=== PATIENT | female | born 1955 | race Hispanic/Latino ===

== ENCOUNTER 2021-02-23 08:07 | Inpatient (IN) | payer SELFPAY ==
[~2021-02-23] VITALS: Ht 157.5 cm; Wt 53.9 kg
[2021-02-23 08:12] VITALS: BP 159/80
[2021-02-23 09:18] LABS: BASOPHILS % (AUTO) 0.6 % (0.0-5.0); EOSINOPHILS % (AUTO) 1.6 % (0.0-8.0); HEMATOCRIT 33.3 % (36-48); LYMPHOCYTES % (AUTO) 23.3 % (21.0-51.0); MEAN CORPUSCULAR HEMOGLOBIN 29.1 pg (27.0-33.0); MEAN CORPUSCULAR HGB CONC 32.4 g/dL (32.0-36.0); MEAN CORPUSCULAR VOLUME 89.8 fL (79-99); MONOCYTES % (AUTO) 7.4 % (3.0-13.0); NEUTROPHILS % (AUTO) 66.7 % (40.0-77.0); PLATELET COUNT (AUTO) 218 K/uL (130-400); RED BLOOD CELL COUNT(AUTO) 3.71 MIL/uL (4.00-5.50); RED CELL DISTRIBUTION WIDTH 12.9 % (11.0-15.5)
[2021-02-23 09:33] LABS: INR 0.99 (0.85-1.15); PROTHROMBIN TIME 10.8 SEC (9.6-11.6)
[2021-02-23 09:54] LABS: ALBUMIN 3.3 g/dL (3.5-5.0); BILIRUBIN,TOTAL 0.6 mg/dL (0.2-1.0); CREATININE 0.8 mg/dL (0.5-1.5); TOTAL PROTEIN, SERUM 8.2 g/dL (6.0-8.3)
[2021-02-23 10:00] VITALS: BP 132/72
[2021-02-23] MEDS ORDERED: ONDANSETRON 4MG INJ IVP SCH (10:11)
[2021-02-23] MEDS: MORPHINE 4 MG SYG IV SCH ×3 (10:32→18:38)
[2021-02-23 11:20] LABS: POTASSIUM 3.9 mmol/L (3.5-5.1)
[2021-02-23 12:00] VITALS: BP 128/70
[2021-02-23] MEDS ORDERED: CEFAZOLIN SODIUM 1 GM VIAL IVP PRN (12:00)
[2021-02-23] MEDS ORDERED: ACETAMINOPHEN 325 MG TAB PO PRN (12:30)
[2021-02-23] MEDS ORDERED: ONDANSETRON 4MG INJ IVP PRN (12:30)
[2021-02-23] MEDS: 0.9%NACL 1000ML 1,000 ML IV SCH ×2 (12:30→18:30)
[2021-02-23] MEDS ORDERED: ACETAMINOPHEN 650 MG SUPPOSITORY RC PRN (12:30)
[2021-02-23] MEDS ORDERED: CLONIDINE HCL 0.1 MG TABLET PO PRN (12:30)
[2021-02-23 14:08] VITALS: BP 132/84
[2021-02-23 14:16] LABS: RETICULOCYTE % (AUTO) 0.77 % (0.42-2.23)
[2021-02-23 14:35] VITALS: BP 146/64
[2021-02-23 14:42] LABS: CREATINE KINASE, TOTAL 37 U/L (21-232); MYOGLOBIN 31 ng/mL (10-92); TROPONIN I < 0.04 ng/mL (0.00-0.06)
[2021-02-23 14:51] LABS: % IRON SATURATION 24.7 % (22-44)
[2021-02-23] MEDS ORDERED: LOSA50TA64 PO (15:06)
[2021-02-23] MEDS ORDERED: GABA600T10 PO (15:06)
[2021-02-23] MEDS ORDERED: METO100T14 PO (15:06)
[2021-02-23] MEDS ORDERED: IBUP-2071 PO (15:07)
[2021-02-23] MEDS: MORPHINE 4 MG SYG IVP PRN ×2 (15:23→18:30)
[2021-02-23 18:31] LABS: CREATINE KINASE, TOTAL 35 U/L (21-232); MYOGLOBIN 29 ng/mL (10-92); TROPONIN I < 0.04 ng/mL (0.00-0.06)
[2021-02-23] MEDS: IPRATROPIUM/ALBUTEROL SULFATE 3 ML SOLUTION IH SCH ×2 (18:31→23:26)
[2021-02-23] MEDS: ENOXAPARIN SODIUM 40 MG/0.4 ML SYRINGE SQ SCH (19:02)
[2021-02-23 20:04] VITALS: BP 146/65
[2021-02-23 23:22] LABS: APPEARANCE,URINE Clear (CLEAR); BILIRUBIN,URINE Negative (NEGATIVE); COLOR,URINE Yellow (YELLOW); GLUCOSE, URINE (UA) Negative (NEGATIVE); KETONES,URINE Negative (NEGATIVE); LEUKOCYTE ESTERASE ,URINE Small (NEGATIVE); NITRATE,URINE Positive (NEGATIVE); OCCULT BLOOD,URINE Trace (NEGATIVE); PH,URINE 5.5 (5.0-8.0); PROTEIN,URINE Negative (NEGATIVE)
[2021-02-23 23:28] LABS: AMPHET/METH SCREEN,URINE NEGATIVE (NEGATIVE); BARBITURATE SCREEN, URINE NEGATIVE (NEGATIVE); BENZODIAZEPINES SCREEN,URINE NEGATIVE (NEGATIVE); CANNABINOID SCREEN,URINE NEGATIVE (NEGATIVE); COCAINE SCREEN,URINE NEGATIVE (NEGATIVE); OPIATE SCREEN,URINE POSITIVE (NEGATIVE); PHENCYCLIDINE SCREEN,URINE NEGATIVE (NEGATIVE)
[2021-02-23 23:37] LABS: BACTERIA,URINE Many /HPF (None Seen); RBC,URINE None Seen /HPF (0-1); SQUAMOUS EPITHELIAL CELL,UR 0-2 /HPF (0-2)
[2021-02-24] VITALS (24 sets, daily range): BP systolic 137–161; BP diastolic 51–82
[2021-02-24] MEDS: MORPHINE 2 MG SYG IVP PRN ×2 (00:42→11:22)
[2021-02-24 00:50] LABS: HEMATOCRIT 30.5 % (36-48); MEAN CORPUSCULAR HEMOGLOBIN 29.7 pg (27.0-33.0); MEAN CORPUSCULAR HGB CONC 33.1 g/dL (32.0-36.0); MEAN CORPUSCULAR VOLUME 89.7 fL (79-99); RED BLOOD CELL COUNT(AUTO) 3.4 MIL/uL (4.00-5.50); WHITE BLOOD COUNT (AUTO) 3.9 K/uL (4.8-10.8)
[2021-02-24 01:21] LABS: CREATINE KINASE, TOTAL 29 U/L (21-232); MYOGLOBIN 25 ng/mL (10-92); TROPONIN I < 0.04 ng/mL (0.00-0.06)
[2021-02-24 01:23] LABS: CARBON DIOXIDE 22 mmol/L (21-32); CHLORIDE 107 mmol/L (101-111); CREATININE 0.8 mg/dL (0.5-1.5); GLOMERULAR FILTR. RATE CALC 77 mL/min (>60); GLUCOSE,RANDOM 97 mg/dL (70-105); PHOSPHORUS 3.3 mg/dL (2.5-4.9); SODIUM SERUM 139 mmol/L (136-145); UREA NITROGEN, BLOOD 10 mg/dL (7-18)
[2021-02-24 01:30] LABS: HEMOGLOBIN A1C 5.3 % (4.0-6.0)
[2021-02-24 01:43] LABS: THYROID STIMULATING HORMONE < 0.01 uIU/mL (0.36-3.74)
[2021-02-24] MEDS: MAGNESIUM 2GM PREMIX 50ML 50 ML IV PRN (03:27)
[2021-02-24] MEDS: IPRATROPIUM/ALBUTEROL SULFATE 3 ML SOLUTION IH SCH ×4 (06:24→23:03)
[2021-02-24] MEDS: METHIMAZOLE 10 MG TAB PO SCH ×2 (09:00→17:16)
[2021-02-24] MEDS: POLYETHYLENE GLYCOL 3350 17 GM POWD.PACK PO SCH (09:00)
[2021-02-24] MEDS: PANTOPRAZOLE 40 MG TAB DR PO SCH (09:00)
[2021-02-24] MEDS: CYANOCOBALAMIN (VITAMIN B-12) 1,000 MCG TABLET PO SCH (09:00)
[2021-02-24] MEDS: LOSARTAN 50 MG TABLET PO SCH (09:00)
[2021-02-24] MEDS: METOPROLOL TARTRATE 50 MG TAB PO SCH (09:01)
[2021-02-24] MEDS: CEFTRIAXONE 1G VIAL IVP SCH (10:53)
[2021-02-24] MEDS ORDERED: LACTATED RINGERS 1000ML 1,000 ML IV ONE (13:21)
[2021-02-24] MEDS ORDERED: LIDOCAINE PF 100MG/5ML (2%) SYRINGE 5ML ONE (13:37)
[2021-02-24] MEDS ORDERED: ONDANSETRON 4MG INJ ONE (13:37)
[2021-02-24] MEDS ORDERED: DEXAMETHASONE SOD PHOSPHATE 10MG/ML 1ML VIAL ONE (13:37)
[2021-02-24] MEDS ORDERED: GLYCOPYRROLATE 1 MG/5 ML SYRINGE ONE (13:37)
[2021-02-24] MEDS ORDERED: NEOSTIGMINE 5MG/5ML SYR IV ONE (13:37)
[2021-02-24] MEDS ORDERED: PROPOFOL 10 MG/ML 20ML VIAL IV ONE (13:37)
[2021-02-24] MEDS ORDERED: SUCCINYLCHOLINE 200MG/10ML SYR ONE (13:37)
[2021-02-24] MEDS ORDERED: ROCURONIUM 10MG/1ML SYR 10 MG/ML ML ONE (13:38)
[2021-02-24] MEDS ORDERED: MIDAZOLAM HCL 1 MG/ML 2ML VIAL ONE (13:38)
[2021-02-24] MEDS ORDERED: FENTANYL CITRATE PF 50 MCG/1 ML 2ML VIAL ONE (13:38)
[2021-02-24] MEDS ORDERED: ROPIVACAINE 0.5% 5MG/ML 30ML IJ ONE (13:41)
[2021-02-24] MEDS ORDERED: CEFAZOLIN SODIUM 1 GM VIAL ONE (14:45)
[2021-02-24] MEDS ORDERED: DEXAMETHASONE SOD PHOSPHATE 4 MG/ML 1ML VIAL ONE (14:57)
[2021-02-24] MEDS: 0.9%NACL 1000ML 1,000 ML IV SCH (15:10)
[2021-02-24] MEDS ORDERED: CEFAZOLIN SODIUM 1 GM VIAL IVP SCH (15:30)
[2021-02-24] MEDS: CEFAZOLIN SODIUM 1 GM VIAL IVP SCH (21:13)
[2021-02-24] MEDS: GABAPENTIN 300 MG CAPSULE PO SCH (21:13)
[2021-02-25 03:52] LABS: HEMATOCRIT 27.5 % (36-48); LYMPHOCYTES % (AUTO) 16.2 % (21.0-51.0); MEAN CORPUSCULAR HEMOGLOBIN 29.8 pg (27.0-33.0); MEAN CORPUSCULAR HGB CONC 33.1 g/dL (32.0-36.0); MEAN CORPUSCULAR VOLUME 90.2 fL (79-99); MONOCYTES % (AUTO) 7.8 % (3.0-13.0); NEUTROPHILS % (AUTO) 75.7 % (40.0-77.0); PLATELET COUNT (AUTO) 168 K/uL (130-400); RED BLOOD CELL COUNT(AUTO) 3.05 MIL/uL (4.00-5.50); RED CELL DISTRIBUTION WIDTH 12.9 % (11.0-15.5); WHITE BLOOD COUNT (AUTO) 3.7 K/uL (4.8-10.8)
[2021-02-25 04:00] VITALS: BP 128/55
[2021-02-25 04:04] LABS: CREATININE 0.7 mg/dL (0.5-1.5); MAGNESIUM 1.8 mg/dL (1.80-2.40); POTASSIUM 3.9 mmol/L (3.5-5.1)
[2021-02-25] MEDS: 0.9%NACL 1000ML 1,000 ML IV SCH (04:30)
[2021-02-25] MEDS: MAGNESIUM 2GM PREMIX 50ML 50 ML IV PRN (06:07)
[2021-02-25] MEDS: CEFAZOLIN SODIUM 1 GM VIAL IVP SCH (06:09)
[2021-02-25] MEDS: TRAMADOL HCL 50 MG TABLET PO PRN ×3 (06:15→22:25)
[2021-02-25] MEDS: IPRATROPIUM/ALBUTEROL SULFATE 3 ML SOLUTION IH SCH ×4 (06:31→23:04)
[2021-02-25] MEDS: MORPHINE 2 MG SYG IVP PRN (07:50)
[2021-02-25 07:56] VITALS: BP 122/53
[2021-02-25] MEDS: CEFTRIAXONE 1G VIAL IVP SCH (09:15)
[2021-02-25] MEDS: POLYETHYLENE GLYCOL 3350 17 GM POWD.PACK PO SCH (09:20)
[2021-02-25] MEDS: LOSARTAN 50 MG TABLET PO SCH (09:20)
[2021-02-25] MEDS: NICOTINE 14 MG/ 24 HR PATCH TD SCH (09:20)
[2021-02-25] MEDS: METOPROLOL TARTRATE 50 MG TAB PO SCH (09:20)
[2021-02-25] MEDS: CYANOCOBALAMIN (VITAMIN B-12) 1,000 MCG TABLET PO SCH (09:20)
[2021-02-25] MEDS: METHIMAZOLE 10 MG TAB PO SCH ×2 (09:21→20:30)
[2021-02-25] MEDS: PANTOPRAZOLE 40 MG TAB DR PO SCH (09:21)
[2021-02-25] MEDS: ENOXAPARIN SODIUM 40 MG/0.4 ML SYRINGE SQ SCH (09:25)
[2021-02-25] MEDS: MORPHINE 4 MG SYG IVP PRN (10:58)
[2021-02-25 11:06] VITALS: BP 109/47
[2021-02-25 15:46] VITALS: BP 110/56
[2021-02-25] MEDS: GABAPENTIN 300 MG CAPSULE PO SCH (20:30)
[2021-02-25 20:43] VITALS: BP 122/54
[2021-02-25 23:38] VITALS: BP 105/51
[2021-02-26 03:51] VITALS: BP 129/58
[2021-02-26 04:20] LABS: HEMATOCRIT 24.1 % (36-48); MEAN CORPUSCULAR HEMOGLOBIN 29.6 pg (27.0-33.0); MEAN CORPUSCULAR HGB CONC 32.8 g/dL (32.0-36.0); MEAN CORPUSCULAR VOLUME 90.3 fL (79-99); RED BLOOD CELL COUNT(AUTO) 2.67 MIL/uL (4.00-5.50); RED CELL DISTRIBUTION WIDTH 13.2 % (11.0-15.5)
[2021-02-26 04:36] LABS: CREATININE 0.7 mg/dL (0.5-1.5); POTASSIUM 3.6 mmol/L (3.5-5.1)
[2021-02-26] MEDS: IPRATROPIUM/ALBUTEROL SULFATE 3 ML SOLUTION IH SCH ×4 (06:31→23:40)
[2021-02-26 08:00] VITALS: BP 139/62
[2021-02-26] MEDS: METOPROLOL TARTRATE 50 MG TAB PO SCH (08:42)
[2021-02-26] MEDS: CYANOCOBALAMIN (VITAMIN B-12) 1,000 MCG TABLET PO SCH (08:42)
[2021-02-26] MEDS: CEFTRIAXONE 1G VIAL IVP SCH (08:42)
[2021-02-26] MEDS: PANTOPRAZOLE 40 MG TAB DR PO SCH (08:42)
[2021-02-26] MEDS: LOSARTAN 50 MG TABLET PO SCH (08:42)
[2021-02-26] MEDS: METHIMAZOLE 10 MG TAB PO SCH ×2 (08:42→20:40)
[2021-02-26] MEDS: POLYETHYLENE GLYCOL 3350 17 GM POWD.PACK PO SCH (08:43)
[2021-02-26] MEDS: ENOXAPARIN SODIUM 40 MG/0.4 ML SYRINGE SQ SCH (08:43)
[2021-02-26] MEDS: NICOTINE 14 MG/ 24 HR PATCH TD SCH (08:44)
[2021-02-26] MEDS: IBUPROFEN 800 MG TAB PO PRN (08:46)
[2021-02-26] MEDS ORDERED: LACTULOSE 20 GM/30 ML UDCUP PO PRN (11:00)
[2021-02-26] MEDS ORDERED: DIPHENHYDRAMINE 2% CREAM 30 GM TP PRN (11:00)
[2021-02-26 12:00] VITALS: BP 120/51
[2021-02-26 16:00] VITALS: BP 135/55
[2021-02-26 16:00] LABS: HEMATOCRIT 25.6 % (36-48)
[2021-02-26 20:12] VITALS: BP 118/52
[2021-02-26] MEDS: MORPHINE 4 MG SYG IVP PRN (20:40)
[2021-02-26] MEDS: GABAPENTIN 300 MG CAPSULE PO SCH (20:40)
[2021-02-26 21:42] LABS: HEMATOCRIT 24.8 % (36-48)
[2021-02-26 23:47] VITALS: BP 127/61
[2021-02-27 04:00] VITALS: BP 109/55
[2021-02-27] MEDS: IPRATROPIUM/ALBUTEROL SULFATE 3 ML SOLUTION IH SCH ×4 (06:18→23:15)
[2021-02-27 08:00] VITALS: BP 113/58
[2021-02-27] MEDS: CEFTRIAXONE 1G VIAL IVP SCH (08:51)
[2021-02-27] MEDS: POLYETHYLENE GLYCOL 3350 17 GM POWD.PACK PO SCH (08:52)
[2021-02-27] MEDS: ENOXAPARIN SODIUM 40 MG/0.4 ML SYRINGE SQ SCH (08:52)
[2021-02-27] MEDS: METHIMAZOLE 10 MG TAB PO SCH ×2 (08:52→20:32)
[2021-02-27] MEDS: LOSARTAN 50 MG TABLET PO SCH (08:53)
[2021-02-27] MEDS: PANTOPRAZOLE 40 MG TAB DR PO SCH (08:53)
[2021-02-27] MEDS: METOPROLOL TARTRATE 50 MG TAB PO SCH (08:53)
[2021-02-27] MEDS: CYANOCOBALAMIN (VITAMIN B-12) 1,000 MCG TABLET PO SCH (08:53)
[2021-02-27] MEDS: NICOTINE 14 MG/ 24 HR PATCH TD SCH (08:54)
[2021-02-27] MEDS: MORPHINE 2 MG SYG IVP PRN ×2 (09:00→20:33)
[2021-02-27 12:00] VITALS: BP 121/49
[2021-02-27 20:00] VITALS: BP 121/58
[2021-02-27] MEDS: GABAPENTIN 300 MG CAPSULE PO SCH (20:32)
[2021-02-28] VITALS: BP 160/87
[2021-02-28 04:00] VITALS: BP 134/70
[2021-02-28 04:06] LABS: HEMATOCRIT 24.8 % (36-48); MEAN CORPUSCULAR HEMOGLOBIN 29.3 pg (27.0-33.0); MEAN CORPUSCULAR HGB CONC 32.7 g/dL (32.0-36.0); MEAN CORPUSCULAR VOLUME 89.9 fL (79-99); RED BLOOD CELL COUNT(AUTO) 2.76 MIL/uL (4.00-5.50); RED CELL DISTRIBUTION WIDTH 12.9 % (11.0-15.5); WHITE BLOOD COUNT (AUTO) 3.1 K/uL (4.8-10.8)
[2021-02-28 04:14] LABS: CREATININE 0.6 mg/dL (0.5-1.5); POTASSIUM 3.5 mmol/L (3.5-5.1)
[2021-02-28] MEDS: IPRATROPIUM/ALBUTEROL SULFATE 3 ML SOLUTION IH SCH ×4 (07:20→23:56)
[2021-02-28 07:59] VITALS: BP 136/64
[2021-02-28] MEDS: TRAMADOL HCL 50 MG TABLET PO PRN (08:16)
[2021-02-28] MEDS: ENOXAPARIN SODIUM 40 MG/0.4 ML SYRINGE SQ SCH (09:33)
[2021-02-28] MEDS: LOSARTAN 50 MG TABLET PO SCH (09:33)
[2021-02-28] MEDS: CYANOCOBALAMIN (VITAMIN B-12) 1,000 MCG TABLET PO SCH (09:33)
[2021-02-28] MEDS: METOPROLOL SUCCINATE 50 MG TAB.SR.24H PO SCH (09:33)
[2021-02-28] MEDS: PANTOPRAZOLE 40 MG TAB DR PO SCH (09:33)
[2021-02-28] MEDS: METHIMAZOLE 10 MG TAB PO SCH ×2 (09:34→20:29)
[2021-02-28] MEDS: POLYETHYLENE GLYCOL 3350 17 GM POWD.PACK PO SCH (09:34)
[2021-02-28] MEDS: NICOTINE 14 MG/ 24 HR PATCH TD SCH (09:34)
[2021-02-28] MEDS: FERROUS SULFATE 325 MG TABLET.DR PO SCH (09:34)
[2021-02-28] MEDS: CEFTRIAXONE 1G VIAL IVP SCH (09:34)
[2021-02-28] MEDS: MORPHINE 2 MG SYG IVP PRN (09:47)
[2021-02-28 10:59] VITALS: BP 108/59
[2021-02-28 16:30] VITALS: BP 127/63
[2021-02-28 19:44] VITALS: BP 133/66
[2021-02-28] MEDS: GABAPENTIN 300 MG CAPSULE PO SCH (20:30)
[2021-03-01] VITALS (7 sets, daily range): BP systolic 123–144; BP diastolic 63–78
[2021-03-01 03:38] LABS: HEMATOCRIT 25.3 % (36-48); MEAN CORPUSCULAR HEMOGLOBIN 29.3 pg (27.0-33.0); MEAN CORPUSCULAR HGB CONC 32.8 g/dL (32.0-36.0); MEAN CORPUSCULAR VOLUME 89.4 fL (79-99); RED BLOOD CELL COUNT(AUTO) 2.83 MIL/uL (4.00-5.50); RED CELL DISTRIBUTION WIDTH 12.8 % (11.0-15.5); WHITE BLOOD COUNT (AUTO) 3.2 K/uL (4.8-10.8)
[2021-03-01 04:03] LABS: CREATININE 0.7 mg/dL (0.5-1.5); POTASSIUM 3.5 mmol/L (3.5-5.1)
[2021-03-01] MEDS: IPRATROPIUM/ALBUTEROL SULFATE 3 ML SOLUTION IH SCH ×3 (06:32→18:28)
[2021-03-01] MEDS: POLYETHYLENE GLYCOL 3350 17 GM POWD.PACK PO SCH (09:00)
[2021-03-01] MEDS: METOPROLOL SUCCINATE 50 MG TAB.SR.24H PO SCH (09:35)
[2021-03-01] MEDS: LOSARTAN 50 MG TABLET PO SCH (09:35)
[2021-03-01] MEDS: METHIMAZOLE 10 MG TAB PO SCH ×2 (09:35→20:11)
[2021-03-01] MEDS: PANTOPRAZOLE 40 MG TAB DR PO SCH (09:35)
[2021-03-01] MEDS: CYANOCOBALAMIN (VITAMIN B-12) 1,000 MCG TABLET PO SCH (09:35)
[2021-03-01] MEDS: FERROUS SULFATE 325 MG TABLET.DR PO SCH (09:35)
[2021-03-01] MEDS: CEFTRIAXONE 1G VIAL IVP SCH (09:36)
[2021-03-01] MEDS: ENOXAPARIN SODIUM 40 MG/0.4 ML SYRINGE SQ SCH (09:36)
[2021-03-01] MEDS: HYDROCODONE/ACETAMINOPHEN 5/325 MG TAB PO PRN (09:36)
[2021-03-01] MEDS: NICOTINE 14 MG/ 24 HR PATCH TD SCH (11:09)
[2021-03-01] MEDS: GABAPENTIN 300 MG CAPSULE PO SCH (20:12)
[2021-03-02] MEDS: IPRATROPIUM/ALBUTEROL SULFATE 3 ML SOLUTION IH SCH ×4 (00:31→18:15)
[2021-03-02 03:53] LABS: HEMATOCRIT 23.2 % (36-48); MEAN CORPUSCULAR HEMOGLOBIN 29.3 pg (27.0-33.0); MEAN CORPUSCULAR HGB CONC 32.8 g/dL (32.0-36.0); MEAN CORPUSCULAR VOLUME 89.6 fL (79-99); PLATELET COUNT (AUTO) 206 K/uL (130-400); RED BLOOD CELL COUNT(AUTO) 2.59 MIL/uL (4.00-5.50); RED CELL DISTRIBUTION WIDTH 12.7 % (11.0-15.5)
[2021-03-02 03:59] LABS: CREATININE 0.8 mg/dL (0.5-1.5); POTASSIUM 3.5 mmol/L (3.5-5.1)
[2021-03-02 04:20] VITALS: BP 115/60
[2021-03-02 06:06] LABS: BASOPHILS % (MANUAL) 2 % (0-2); EOSINOPHILS % (MANUAL) 8 % (1-6); LYMPHOCYTES % (MANUAL) 28 % (22-44); MAN.DIFF COMMENT-IMPRESSION MANUAL DIFFERENTIAL; MONOCYTES % (MANUAL) 3 % (2-9); PLATELET MORPHOLOGY COMMENT ADEQUATE; SEGMENTED NEUTROPHILS % 59 % (40-70)
[2021-03-02 07:43] VITALS: BP 121/63
[2021-03-02] MEDS: LOSARTAN 50 MG TABLET PO SCH (07:56)
[2021-03-02] MEDS: HYDROCODONE/ACETAMINOPHEN 5/325 MG TAB PO PRN ×2 (07:56→20:52)
[2021-03-02] MEDS: PANTOPRAZOLE 40 MG TAB DR PO SCH (07:56)
[2021-03-02] MEDS: FERROUS SULFATE 325 MG TABLET.DR PO SCH (07:56)
[2021-03-02] MEDS: METHIMAZOLE 10 MG TAB PO SCH ×2 (07:57→20:50)
[2021-03-02] MEDS: METOPROLOL SUCCINATE 50 MG TAB.SR.24H PO SCH (07:57)
[2021-03-02] MEDS: ENOXAPARIN SODIUM 40 MG/0.4 ML SYRINGE SQ SCH (07:57)
[2021-03-02] MEDS: CYANOCOBALAMIN (VITAMIN B-12) 1,000 MCG TABLET PO SCH (07:57)
[2021-03-02] MEDS: POLYETHYLENE GLYCOL 3350 17 GM POWD.PACK PO SCH (07:57)
[2021-03-02] MEDS: FOLIC ACID 1 MG TABLET PO SCH (07:58)
[2021-03-02] MEDS: NICOTINE 14 MG/ 24 HR PATCH TD SCH (09:12)
[2021-03-02 11:23] VITALS: BP 128/55
[2021-03-02 15:21] VITALS: BP 104/48
[2021-03-02 20:00] VITALS: BP 124/64
[2021-03-02] MEDS: GABAPENTIN 300 MG CAPSULE PO SCH (20:51)
[2021-03-02 23:33] VITALS: BP 122/60
[2021-03-03] MEDS: IPRATROPIUM/ALBUTEROL SULFATE 3 ML SOLUTION IH SCH ×3 (00:09→11:19)
[2021-03-03] MEDS: IBUPROFEN 800 MG TAB PO PRN (00:28)
[2021-03-03 04:06] VITALS: BP 126/63
[2021-03-03 08:00] VITALS: BP 115/58
[2021-03-03] MEDS: METHIMAZOLE 10 MG TAB PO SCH (08:09)
[2021-03-03] MEDS: POLYETHYLENE GLYCOL 3350 17 GM POWD.PACK PO SCH (08:09)
[2021-03-03] MEDS: METOPROLOL SUCCINATE 50 MG TAB.SR.24H PO SCH (08:09)
[2021-03-03] MEDS: LOSARTAN 50 MG TABLET PO SCH (08:09)
[2021-03-03] MEDS: FOLIC ACID 1 MG TABLET PO SCH (08:09)
[2021-03-03] MEDS: PANTOPRAZOLE 40 MG TAB DR PO SCH (08:09)
[2021-03-03] MEDS: FERROUS SULFATE 325 MG TABLET.DR PO SCH (08:09)
[2021-03-03] MEDS: ENOXAPARIN SODIUM 40 MG/0.4 ML SYRINGE SQ SCH (08:10)
[2021-03-03] MEDS: CYANOCOBALAMIN (VITAMIN B-12) 1,000 MCG TABLET PO SCH (08:10)
[2021-03-03] MEDS: NICOTINE 14 MG/ 24 HR PATCH TD SCH (08:12)
[2021-03-03] MEDS: HYDROCODONE/ACETAMINOPHEN 5/325 MG TAB PO PRN (08:17)
[2021-03-03 12:00] VITALS: BP 96/55
== END 2021-03-03 13:16 | disposition home or self-care (01) | DRG 481 ==
LOC: EDH 08:07 → EDHIP 08:08 → 4AH 14:18
PROVIDERS: ADMIT Internal Medicine Critical Care Medicine; ATTEND Internal Medicine Critical Care Medicine
PROC: 3E0T3BZ Introduction of Anesthetic Agent into Peripheral Nerves and Plexi, Percutaneous Approach (ICD-10-PCS; 2021-02-24)
PROC: 3E0T33Z Introduction of Anti-inflammatory into Peripheral Nerves and Plexi, Percutaneous Approach (ICD-10-PCS; 2021-02-24)
PROC: 0QH736Z Insertion of Intramedullary Internal Fixation Device into Left Upper Femur, Percutaneous Approach (ICD-10-PCS; principal; 2021-02-24 14:05)
DX: S72.145A Nondisplaced intertrochanteric fracture of left femur, initial encounter for closed fracture (principal); N39.0 Urinary tract infection, site not specified; I10 Essential (primary) hypertension; F41.9 Anxiety disorder, unspecified; E05.00 Thyrotoxicosis with diffuse goiter without thyrotoxic crisis or storm; F17.200 Nicotine dependence, unspecified, uncomplicated; I67.1 Cerebral aneurysm, nonruptured; J45.909 Unspecified asthma, uncomplicated; K59.00 Constipation, unspecified; M81.8 Other osteoporosis without current pathological fracture; B96.20 Unspecified Escherichia coli [E. coli] as the cause of diseases classified elsewhere; R13.10 Dysphagia, unspecified; Z20.822 Contact with and (suspected) exposure to COVID-19; W01.0XXA Fall on same level from slipping, tripping and stumbling without subsequent striking against object, initial encounter; Y93.K1 Activity, walking an animal; Y92.89 Other specified places as the place of occurrence of the external cause; Y99.8 Other external cause status; Z79.899 Other long term (current) drug therapy; Z93.1 Gastrostomy status; Z90.49 Acquired absence of other specified parts of digestive tract; Z86.73 Personal history of transient ischemic attack (TIA), and cerebral infarction without residual deficits; Z83.3 Family history of diabetes mellitus; Z82.49 Family history of ischemic heart disease and other diseases of the circulatory system
CPT/HCPCS: 36415; 71045; 72170; 73501; 73503; 74176; 80048; 80053; 80305; 81001; 82550; 82607; 82728; 83036; 83735; 83874; 84100; 84439; 84443; 84445; 84481; 84484; 85014; 85018; 85025; 85027; 85610; 86376; 86850; 86900; 86901; 87077; 87088; 87186; 87635; 93005; 94640; 94664; 97039; C9803; G0378; J0330; J0690; J0696; J1100; J1650; J2001; J2250; J2270; J2405; J2704; J2710; J2795; J3010; J3475; J3490; J7030; J7120

== ENCOUNTER 2022-03-14 21:21 | Emergency (ER) | payer MEDICARE ==
[~2022-03-14] VITALS: Ht 157.5 cm; Wt 55.8 kg
[~2022-03-14 21:21] MED LIST: GABA600T10 PO; LOSA50TA64 PO; METO100T14 PO; OSEL75 PO
[2022-03-14 21:41] LABS: HEMATOCRIT 27.7 % (36-48); MEAN CORPUSCULAR HEMOGLOBIN 30.6 pg (27.0-33.0); MEAN CORPUSCULAR HGB CONC 33.6 g/dL (32.0-36.0); MEAN CORPUSCULAR VOLUME 91.1 fL (79-99); PLATELET COUNT (AUTO) 230 K/uL (130-400); RED BLOOD CELL COUNT(AUTO) 3.04 MIL/uL (4.00-5.50); RED CELL DISTRIBUTION WIDTH 12.9 % (11.0-15.5); WHITE BLOOD COUNT (AUTO) 3.6 K/uL (4.8-10.8)
[2022-03-14] MEDS: KETOROLAC 30MG VIAL (30MG/ML) IVP ONE (21:49)
[2022-03-14] MEDS: ONDANSETRON 4MG INJ IVP ONE (21:49)
[2022-03-14 21:59] LABS: CREATININE 0.9 mg/dL (0.5-1.5); POTASSIUM 3.6 mmol/L (3.5-5.1)
[2022-03-14 22:06] LABS: BASOPHILS % (AUTO) 0.8 % (0.0-5.0); EOSINOPHILS % (AUTO) 7.4 % (0.0-8.0); LYMPHOCYTES % (AUTO) 43.8 % (21.0-51.0); MONOCYTES % (AUTO) 9.4 % (3.0-13.0); NEUTROPHILS % (AUTO) 38.3 % (40.0-77.0)
[2022-03-14 22:09] LABS: TOTAL PROTEIN, SERUM 7.5 g/dL (6.0-8.3)
[2022-03-14] MEDS: 0.9% NACL 500ML IV.SOLN 500 ML IV SCH (22:23)
[2022-03-14] MEDS: MAGNESIUM CITRATE 296 ML SOLUTION ONE (22:53)
[2022-03-14] MEDS: LACTULOSE 20 GM/30 ML UDCUP ONE (22:53)
[2022-03-14] MEDS: MAGNESIUM CITRATE 296 ML SOLUTION PO ONE (22:53)
[2022-03-14] MEDS: LACTULOSE 20 GM/30 ML UDCUP PO ONE (22:53)
[2022-03-14 23:00] VITALS: BP 132/60
[2022-03-14] MEDS ORDERED: LACT10PA5 PO (23:06)
== END 2022-03-14 23:31 | disposition home or self-care (01) ==
LOC: EDH 21:21
DX: K40.90 Unilateral inguinal hernia, without obstruction or gangrene, not specified as recurrent (principal); K57.30 Diverticulosis of large intestine without perforation or abscess without bleeding; K59.01 Slow transit constipation; I10 Essential (primary) hypertension; Z71.6 Tobacco abuse counseling; J45.909 Unspecified asthma, uncomplicated; F17.200 Nicotine dependence, unspecified, uncomplicated; Z79.899 Other long term (current) drug therapy
CPT/HCPCS: 99285; 74176; 96374; 96375; 84484; 80053; 83690; 85025; 36415; 93005; J2405; J1885

== ENCOUNTER → 2022-05-21 | Outpatient (CLI) | payer MEDICARE ==
[~2022-05-21] MED LIST changes: +LACT10PA5 PO
== END | disposition home or self-care (01) ==
LOC: LAB 12:00
PROVIDERS: ATTEND Family Medicine
DX: J44.9 Chronic obstructive pulmonary disease, unspecified (principal); M47.815 Spondylosis without myelopathy or radiculopathy, thoracolumbar region
CPT/HCPCS: 71046

== ENCOUNTER 2023-01-07 10:53 | Emergency (ER) | payer MEDICARE, OTHER ==
[~2023-01-07] VITALS: Ht 157.5 cm; Wt 56.2 kg
[2023-01-07 11:15] VITALS: BP 122/66
[2023-01-07] MEDS ORDERED: CEFTRIAXONE 1G VIAL IM ONE (16:30)
[2023-01-07] MEDS ORDERED: CEPH500B PO (16:52)
[2023-01-07] MEDS ORDERED: FAMO-136 PO (16:52)
[2023-01-07] MEDS ORDERED: DIPH-1242 PO (16:52)
[2023-01-07] MEDS ORDERED: PRED20TA3 PO (16:52)
== END 2023-01-07 17:20 | disposition home or self-care (01) ==
LOC: EDH 10:53
DX: T63.441A Toxic effect of venom of bees, accidental (unintentional), initial encounter (principal); S00.31XA Abrasion of nose, initial encounter; I10 Essential (primary) hypertension; E78.00 Pure hypercholesterolemia, unspecified; F17.200 Nicotine dependence, unspecified, uncomplicated; Z79.899 Other long term (current) drug therapy; Z98.890 Other specified postprocedural states; X58.XXXA Exposure to other specified factors, initial encounter; Y93.89 Activity, other specified; Y92.89 Other specified places as the place of occurrence of the external cause; Y99.8 Other external cause status
CPT/HCPCS: 99283; 96372; J0696